=== PATIENT | male | born 1990 | race Caucasian/White ===

== ENCOUNTER 2017-11-06 16:03 | Emergency (ER) | payer MEDICAID ==
[~2017-11-06] VITALS: Ht 177.8 cm; Wt 81.6 kg
--- NOTE | 2017-11-06 16:03 | NUR ---
Patient BIB [facility] for pre-booking medical clearance, transferred to chair Dimas RN evaluating patient.
[2017-11-06 16:12] VITALS: BP 131/74
[2017-11-06] MEDS ORDERED: KETOROLAC 60 MG/2 ML VIAL IM ONE (16:30)
[2017-11-06] MEDS ORDERED: cefTRIAXone 1,000 MG in LIDOCAINE 1% ***ER ONLY *** 2.1 ML IM ONE (16:30)
[2017-11-06] MEDS ORDERED: cefTRIAXone 1,000 MG VIAL ONE (17:00)
[2017-11-06] MEDS ORDERED: LIDOCAINE MPF 1% - 5 mL VIAL 5 ML ONE (17:01)
--- NOTE | 2017-11-06 17:17 | NUR ---
PATIENT MEDICATED FOR PAIN
--- NOTE | 2017-11-06 17:17 | NUR ---
ROCEPHIN 1 GM RECONST. WITH XYLOCAINE 1% 2.1 ML GIVEN IM RT. GLUTEUS MUSCLE. TOLERATED
[2017-11-06 17:40] VITALS: BP 130/78
--- NOTE | 2017-11-06 17:40 | NUR ---
Patient discharged with v/s stable. Written and verbal after care instructions given and explained. Patient verbalized understanding. Police with steady gait. All questions addressed prior to discharge. Advised to follow up with PMD.
== END 2017-11-06 17:40 ==
LOC: MED 16:03
DX: Z02.89 Encounter for other administrative examinations (principal)
CPT/HCPCS: 96372; 99283; J0696; J1885; J2001